=== PATIENT | male | born 1960 | race Caucasian/White ===

== ENCOUNTER 2020-02-13 12:05 | Inpatient (IN) | payer OTHER ==
[~2020-02-13] VITALS: Ht 180.3 cm; Wt 100.8 kg
--- NOTE | 2020-02-13 12:06 | NUR ---
Code cardiac called at 1149 after [facility] pre-alert. Spoke with Colten from nursery laborer at 1150 who states that the rn labor and delivery team is already in house. Per Colten he will get ahold of Dr. Newman. Dr. Newman arrived in ED before patient arrived via [facility].
[2020-02-13] MEDS ORDERED: VERAPAMIL 2.5 MG/ML, 2ML ONE (12:09)
[2020-02-13] MEDS ORDERED: FENTANYL PF 250 MCG/5ML ONE ×2 (12:09→19:14)
[2020-02-13] MEDS ORDERED: MIDAZOLAM 1 MG/ML, 5ML ONE (12:09)
[2020-02-13] MEDS ORDERED: HEPARIN 1,000 UNITS/ML, 10ML ONE (12:09)
[2020-02-13] MEDS ORDERED: LIDOCAINE-MPF 1%, 5ML ONE ×2 (12:09→12:42)
[2020-02-13] MEDS ORDERED: BIVALIRUDIN 250 MG ONE (12:09)
--- NOTE | 2020-02-13 12:10 | NUR ---
STAT ECHO called per Dr. Newman. testing and regulating technician to come down now.
[2020-02-13 12:23] LABS: MEAN CORPUSCULAR HEMOGLOBIN 32.7 pg (27.5-34.5); MEAN CORPUSCULAR HGB CONC 33.8 g/dL (33.2-36.2); MEAN CORPUSCULAR VOLUME 96.7 fL (81-97); MEAN PLATELET VOLUME 10.1 fL (7.4-10.4); PLATELET COUNT 143 x10^3/uL (130-400); RED BLOOD COUNT 5.29 x10^6/uL (4.38-5.82); RED CELL DISTRIBUTION WIDTH 15.5 % (9.4-14.8)
[2020-02-13] MEDS: PROPOFOL 100 ML IV PRN (12:28)
[2020-02-13] MEDS ORDERED: SODIUM CHLORIDE FLUSH 10ML SYR IVF ONE (12:30)
--- NOTE | 2020-02-13 12:30 | NUR ---
PT BIBA AFTER STEMI PRE-ALERT. REPORT TAKEN FROM EMS. PT UNRESPONSIVE ON ARRIVAL, SINUS TACH ON HUMAN RESOURCES RECORDS CLERK. PER EMS, PT'S FAMILY STATES PT HAS HAD GENERALIZED ABD PAIN X 5 DAYS, FAMILY DENIES ANY COUGH/FEVER/SOB. PT HAS ERYTHEMATOUS UMBILICAL HERNIA NOTED ON ARRIVAL. ON ARRIVAL, DECISION WAS MADE BY REJI LONG TO INTUBATE D/T RAPIDLY DECREASED LOC. PT MOVED FROM TRAUMA 4 TO ROOM 38 WHICH IS NEGATIVE PRESSURE. ET TUBE PLACED BY ERP WITH RN AND RT ASSIST, 24 CM AT THE KIP, 8.0 ET TUBE. RAPID COVID SWAB COLLECTED BY ERP. PT SEEN BY HUMAN RESOURCES BENEFITS ADMINISTRATOR KARENA WHO REQUESTED ECHOCARDIOGRAM BE COMPLETED AT BEDSIDE PRIOR TO TRANSPORT TO CAMP NURSE. VERBAL ORDER RECEIVED FROM MD THURSTON TO ADMINISTER 300MG RECTAL ASPIRIN. [facility], REQUESTED X 3 FROM PHARMACY. MD THURSTON NOTIFIED RN UNABLE TO GIVE RECTAL ASPIRIN. Addendum: 02/13/20 at 1443 by DEANDRA PT BIBA AFTER STEMI PRE-ALERT. REPORT TAKEN FROM EMS. PT UNRESPONSIVE ON ARRIVAL, SINUS TACH ON HUMAN RESOURCES RECORDS CLERK. PER EMS, PT'S FAMILY STATES PT HAS HAD GENERALIZED ABD PAIN X 5 DAYS, FAMILY DENIES ANY COUGH/FEVER/SOB. PT HAS ERYTHEMATOUS UMBILICAL HERNIA NOTED ON ARRIVAL. ON ARRIVAL, DECISION WAS MADE BY REJI LONG TO INTUBATE D/T RAPIDLY DECREASED LOC. PT MOVED FROM TRAUMA 4 TO ROOM 38 WHICH IS NEGATIVE PRESSURE. ET TUBE PLACED BY ERP WITH RN AND RT ASSIST, 24 CM AT THE LIP, 8.0 ET TUBE. RAPID COVID SWAB COLLECTED BY ERP. PT SEEN BY HUMAN RESOURCES BENEFITS ADMINISTRATOR DESAI WHO REQUESTED ECHOCARDIOGRAM BE COMPLETED AT BEDSIDE PRIOR TO TRANSPORT TO CAMP NURSE. VERBAL ORDER RECEIVED FROM MD THURSTON TO ADMINISTER 300MG RECTAL ASPIRIN. NO RECTAL ASPIRIN IN ED [facility], REQUESTED X 3 FROM PHARMACY. MD THURSTON NOTIFIED RN UNABLE TO GIVE RECTAL ASPIRIN.
[2020-02-13 12:33] LABS: INTERNATIONAL NORMALIZED RATIO 1.54 (0.93-1.1); PROTHROMBIN TIME 16.4 Seconds (9.6-11.5)
[2020-02-13 12:34] LABS: ALANINE AMINOTRANSFERASE 102 U/L (12-78); ANION GAP 6 mmol/L (5-15); CALCIUM 8.6 mg/dL (8.5-10.1); CHLORIDE 103 mmol/L (98-107); CREATININE 1.13 mg/dL (0.7-1.3)
[2020-02-13 12:37] LABS: BASOPHILS # (AUTO) 0.03 x10^3/uL (0-0.1); BASOPHILS % (AUTO) 0 % (0-1); EOSINOPHILS % (AUTO) 0 % (1-7); LYMPHOCYTES # (AUTO) 1.42 x10^3/uL (1-3.4); LYMPHOCYTES % (AUTO) 8 % (22-44); MD SCAN; MONOCYTES # (AUTO) 2.47 x10^3/uL (0.2-0.8); MONOCYTES % (AUTO) 14 % (2-9); NEUTROPHILS # (AUTO) 13.77 x10^3/uL (1.8-6.8); NEUTROPHILS % (AUTO) 78 % (42-75)
[2020-02-13] MEDS ORDERED: HEPARIN 5,000 UNITS/ML, 1ML ONE (12:40)
[2020-02-13 12:53] LABS: ALKALINE PHOSPHATASE 143 U/L (45-117); BILIRUBIN,TOTAL 3.1 mg/dL (0.2-1.0)
[2020-02-13] MEDS ORDERED: SODIUM CHLORIDE FLUSH 10ML SYR IVF PRN (13:00)
--- NOTE | 2020-02-13 13:00 | NUR ---
pt taken to labor arbitrator with this RN, RT and tech, report given to labor arbitrator RN Stew at bedside. labor arbitrator RN pt has not received aspirin as it was not available in rectal form in ED [facility]. droplet + isolation precautions maintained during ED stay and transport.
[2020-02-13] MEDS ORDERED: AMIODARONE 50 MG/ML, 3ML ONE (13:49)
[2020-02-13] MEDS ORDERED: DEXTROSE 5%, 250ML ONE (13:49)
[2020-02-13] MEDS ORDERED: AMIODARONE 450 MG in DEXTROSE 5% 241 ML IV SCH (14:00)
[2020-02-13] MEDS ORDERED: EPINEPHRINE SYRINGE 0.1 MG/ML, 10ML ONE (14:00)
[2020-02-13] MEDS ORDERED: PLEASE ENTER ALLERGIES MC SCH (14:00)
[2020-02-13] MEDS ORDERED: PLEASE ENTER HEIGHT AND WEIGHT MC SCH (14:00)
[2020-02-13] MEDS ORDERED: VECURONIUM 10 MG IVPush ONE (14:30)
[2020-02-13] MEDS ORDERED: ETOMIDATE 40 MG/20 ML IVPush ONE (14:30)
[2020-02-13] MEDS: MIDAZOLAM HCL 50 MG in SODIUM CHLORIDE 0.9% 40 ML IV PRN ×2 (15:07→18:52)
[2020-02-13 15:09] LABS: ALANINE AMINOTRANSFERASE 102 U/L (12-78); ANION GAP 12 mmol/L (5-15); CALCIUM 7.9 mg/dL (8.5-10.1); CHLORIDE 104 mmol/L (98-107); CREATININE 1.42 mg/dL (0.7-1.3)
[2020-02-13 15:11] LABS: ALKALINE PHOSPHATASE 154 U/L (45-117); BILIRUBIN,TOTAL 3.2 mg/dL (0.2-1.0); TOTAL PROTEIN 6.7 g/dL (6.4-8.2)
[2020-02-13 15:27] LABS: INTERNATIONAL NORMALIZED RATIO 6.54 (0.93-1.1); PROTHROMBIN TIME 70.7 Seconds (9.6-11.5)
[2020-02-13] MEDS ORDERED: SODIUM BICARBONATE 8.4% 150 MEQ in DEXTROSE 5% 1,000 ML IV SCH (15:30)
[2020-02-13] MEDS ORDERED: HEPARIN 25,000 UNITS/250ML PMX 250 ML IV PRN (15:30)
[2020-02-13] MEDS ORDERED: morphine SULFATE 10 MG/ML, 1ML IVPush PRN (15:30)
[2020-02-13] MEDS ORDERED: ONDANSETRON 2MG/ML, 2ML IVPush PRN (15:30)
[2020-02-13] MEDS ORDERED: ENOXAPARIN 40 MG/0.4 ML SQ SCH (15:30)
[2020-02-13] MEDS ORDERED: HEPARIN 5,000 UNITS/ML, 1ML IV ONE (15:30)
[2020-02-13] MEDS ORDERED: HEPARIN 5,000 UNITS/ML, 1ML IV PRN (15:30)
[2020-02-13] MEDS ORDERED: SODIUM BICARB 8.4%, 50ML SYRINGE ONE (15:35)
[2020-02-13] MEDS: METOPROLOL TARTRATE 25 MG TAB PO SCH (15:41)
[2020-02-13] MEDS: PIPERACILLIN/TAZO/PMX 3.375GM 50 ML IV SCH ×2 (15:42→22:12)
[2020-02-13] MEDS ORDERED: SODIUM BICARBONATE 1 MEQ/ML, 50ML VIAL IVPush ONE (16:00)
[2020-02-13 16:02] LABS: BILIRUBIN, DIRECT 1.4 mg/dL (0.1-0.2)
[2020-02-13 16:10] LABS: MICROSCOPIC INDICATED
[2020-02-13 16:11] LABS: BILIRUBIN,INDIRECT 1.7 mg/dL (0.0-2.0); BILIRUBIN,TOTAL 3.1 mg/dL (0.2-1.0)
[2020-02-13 16:40] LABS: D-DIMER 18.57 ug/mlFEU (0.00-0.52)
[2020-02-13] MEDS ORDERED: ACETAMINOPHEN 650 MG SUPP ONE (18:05)
[2020-02-13 18:29] LABS: INTERNATIONAL NORMALIZED RATIO 2.05 (0.93-1.1); PROTHROMBIN TIME 21.9 Seconds (9.6-11.5)
[2020-02-13] MEDS ORDERED: LACTATED RINGERS 1,000 ML IVBOLUS ONE (19:00)
[2020-02-13] MEDS ORDERED: AMIODARONE 450 MG in DEXTROSE 5% 241 ML IV PRN (19:00)
[2020-02-13] MEDS ORDERED: LIDOCAINE/PF 1.5%-EPI 1:200K, 30ML ONE (19:26)
[2020-02-13] MEDS ORDERED: FILTER 0.22 MICRON FOR AMIODARONE IV PRN (19:30)
[2020-02-13] MEDS: AMIODARONE 450 MG in DEXTROSE 5% 241 ML IV SCH (19:31)
[2020-02-13] MEDS ORDERED: SENNA/DOCUSATE TABLET NG PRN (20:00)
[2020-02-13] MEDS: ALBUTEROL/IPRATROPIUM 2.5MG/0.5MG, 3 ML INLINE SCH ×2 (20:00→22:29)
[2020-02-13] MEDS ORDERED: DEXTROSE 50%, 50ML SYRINGE IVPush PRN (20:00)
[2020-02-13] MEDS ORDERED: SENNA 176 MG/5 ML ORAL SOL NG PRN (20:00)
[2020-02-13] MEDS ORDERED: GLUCAGON 1 MG IM PRN (20:00)
[2020-02-13] MEDS ORDERED: BISACODYL 10 MG SUPP PR PRN (20:00)
[2020-02-13] MEDS ORDERED: SODIUM CHLORIDE 0.9% 1,000ML IVBOLUS ONE (20:00)
[2020-02-13] MEDS ORDERED: LACTULOSE 20 GM/30 ML UDC NG PRN (20:00)
[2020-02-13] MEDS ORDERED: ACETAMINOPHEN 650 MG SUPP PR PRN (20:00)
[2020-02-13] MEDS ORDERED: DEXTROSE 4 GM TAB.CHEW PO PRN (20:00)
[2020-02-13] MEDS ORDERED: PHARMACY MAY ADJ FOR RENAL FX MC SCH (20:00)
[2020-02-13] MEDS ORDERED: LIDOCAINE-MPF 1%, 2ML ENDO PRN (20:00)
[2020-02-13] MEDS ORDERED: ROCURONIUM 10MG/ML,5ML ONE (20:03)
[2020-02-13] MEDS ORDERED: CEFAZOLIN 1,000 MG ONE ×2 (20:09)
[2020-02-13] MEDS: HEPARIN 5,000 UNITS/ML, 1ML SQ SCH (20:48)
[2020-02-13 20:57] LABS: ANION GAP 8 mmol/L (5-15); CALCIUM 7.4 mg/dL (8.5-10.1); CHLORIDE 109 mmol/L (98-107); CREATININE 1.42 mg/dL (0.7-1.3); TRIGLYCERIDES 99 mg/dL (50-200)
[2020-02-13] MEDS ORDERED: FAMOTIDINE 20 MG/2 ML IVPush SCH (21:00)
[2020-02-13] MEDS: ATORVASTATIN 80 MG TABLET PO SCH (21:37)
[2020-02-13] MEDS: FAMOTIDINE 20 MG/2 ML IV SCH (21:37)
[2020-02-13] MEDS: SODIUM CHLORIDE FLUSH 10ML SYR IVF SCH (21:38)
[2020-02-13 21:56] LABS: MEAN CORPUSCULAR HEMOGLOBIN 32.6 pg (27.5-34.5); MEAN CORPUSCULAR HGB CONC 33.8 g/dL (33.2-36.2); MEAN CORPUSCULAR VOLUME 96.2 fL (81-97); PLATELET COUNT 140 x10^3/uL (130-400); RED BLOOD COUNT 4.49 x10^6/uL (4.38-5.82); RED CELL DISTRIBUTION WIDTH 15.5 % (9.4-14.8)
[2020-02-13 22:17] LABS: BASOPHILS # (AUTO) 0.01 x10^3/uL (0-0.1); BASOPHILS % (AUTO) 0 % (0-1); EOSINOPHILS % (AUTO) 0 % (1-7); LYMPHOCYTES # (AUTO) 1.44 x10^3/uL (1-3.4); LYMPHOCYTES % (AUTO) 6 % (22-44); MD SCAN; MONOCYTES # (AUTO) 3.37 x10^3/uL (0.2-0.8); MONOCYTES % (AUTO) 14 % (2-9); NEUTROPHILS # (AUTO) 19.08 x10^3/uL (1.8-6.8); NEUTROPHILS % (AUTO) 80 % (42-75)
[2020-02-14] MEDS: PROPOFOL 100 ML IV PRN ×3 (00:14→17:21)
[2020-02-14 00:35] LABS: AMPHETAMINE SCREEN, URINE Positive (Negative); BARBITURATE SCREEN, URINE Negative (Negative); BENZODIAZEPINE SCREEN, URINE Positive (Negative); CANNABINOID SCREEN, URINE Negative (Negative)
[2020-02-14 00:37] LABS: COCAINE SCREEN, URINE Negative (Negative); METHADONE SCREEN, URINE Negative (Negative); OPIATE SCREEN, URINE Negative (Negative)
[2020-02-14] MEDS: ALBUTEROL/IPRATROPIUM 2.5MG/0.5MG, 3 ML INLINE SCH ×6 (02:43→22:05)
[2020-02-14] MEDS: HEPARIN 5,000 UNITS/ML, 1ML SQ SCH (03:26)
[2020-02-14] MEDS: PIPERACILLIN/TAZO/PMX 3.375GM 50 ML IV SCH ×4 (03:27→21:59)
[2020-02-14 04:00] VITALS: BP 99/54
[2020-02-14 04:41] LABS: ALANINE AMINOTRANSFERASE 138 U/L (12-78); ALBUMIN 1.6 g/dL (3.4-5.0); ANION GAP 7 mmol/L (5-15); CALCIUM 7.2 mg/dL (8.5-10.1); CHLORIDE 110 mmol/L (98-107); CREATININE 1.37 mg/dL (0.7-1.3)
[2020-02-14 04:44] LABS: ALKALINE PHOSPHATASE 111 U/L (45-117); BILIRUBIN,TOTAL 2.3 mg/dL (0.2-1.0); TOTAL PROTEIN 5.2 g/dL (6.4-8.2)
[2020-02-14 04:53] LABS: MEAN CORPUSCULAR HEMOGLOBIN 32.5 pg (27.5-34.5); MEAN CORPUSCULAR HGB CONC 33.8 g/dL (33.2-36.2); MEAN CORPUSCULAR VOLUME 96.2 fL (81-97); MEAN PLATELET VOLUME 10.9 fL (7.4-10.4); PLATELET COUNT 145 x10^3/uL (130-400); RED BLOOD COUNT 4.44 x10^6/uL (4.38-5.82)
[2020-02-14] MEDS: METOPROLOL TARTRATE 25 MG TAB PO SCH (05:27)
[2020-02-14] MEDS: AMIODARONE 450 MG in DEXTROSE 5% 241 ML IV SCH ×2 (05:40→17:47)
[2020-02-14 05:54] LABS: MD YES
[2020-02-14 05:55] LABS: BAND#(MANUAL) 1.74 x10^3/uL; BANDS%(MANUAL) 12 % (0-7); LYMPH#(MANUAL) 1.02 x10^3/uL (1-3.4); LYMPHS% (MANUAL) 7 % (22-44); METAMYELOCYTES# (MANUAL) 0.15 x10^3/uL (0-0); METAMYELOCYTES% (MANUAL) 1 % (0-1); MONOS#(MANUAL) 1.45 x10^3/uL (0.3-2.7); MONOS% (MANUAL) 10 % (2-9); SEG#(MANUAL) 10.15 x10^3/uL (1.8-6.8); SEGS% (MANUAL) 70 % (42-75)
[2020-02-14 05:58] LABS: <PLATELET ESTIMATE> ADEQUATE; <PLT MORPHOLOGY> NORMAL PLT MORPH; <RBC MORPHOLOGY> NORMAL
[2020-02-14] MEDS ORDERED: LISINOPRIL 10 MG TABLET PO SCH (09:00)
[2020-02-14] MEDS: ASPIRIN 81 MG TABLET EC PO SCH (09:07)
[2020-02-14] MEDS: FAMOTIDINE 20 MG/2 ML IV SCH ×2 (09:18→21:58)
[2020-02-14] MEDS: ALBUMIN HUMAN 25% 200 ML IV SCH ×2 (09:18→17:30)
[2020-02-14] MEDS: SODIUM CHLORIDE FLUSH 10ML SYR IVF SCH ×2 (09:20→21:59)
[2020-02-14] MEDS: BUDESONIDE 0.5 MG/2 ML INHA INH SCH ×2 (10:20→18:27)
[2020-02-14] MEDS: CARVEDILOL 3.125 MG TABLET PO SCH ×2 (11:10→16:53)
[2020-02-14] MEDS: FENTANYL PF 100 MCG/2ML IVPush PRN ×2 (12:57→14:45)
[2020-02-14] MEDS: MIDAZOLAM HCL 50 MG in SODIUM CHLORIDE 0.9% 40 ML IV PRN ×2 (14:30→23:19)
[2020-02-14] MEDS: FENTANYL PF 1,000 MCG in SODIUM CHLORIDE 0.9% 80 ML IV PRN ×2 (15:28→23:04)
[2020-02-14] MEDS: NOREPINEPHRINE 8 MG in SODIUM CHLORIDE 0.9% 242 ML IV PRN ×3 (17:21→22:04)
[2020-02-14] MEDS: ATORVASTATIN 80 MG TABLET PO SCH (20:54)
[2020-02-14] MEDS ORDERED: SODIUM CHLORIDE 0.9% 1,000ML IVBOLUS ONE (21:00)
[2020-02-14] MEDS: VASOPRESSIN 20 UNIT in SODIUM CHLORIDE 0.9% 99 ML IV PRN (22:03)
[2020-02-15] MEDS: ALBUMIN HUMAN 25% 200 ML IV SCH (00:55)
[2020-02-15] MEDS: NOREPINEPHRINE 8 MG in SODIUM CHLORIDE 0.9% 242 ML IV PRN ×3 (01:12→05:56)
[2020-02-15] MEDS: ALBUTEROL/IPRATROPIUM 2.5MG/0.5MG, 3 ML INLINE SCH ×2 (02:21→07:00)
[2020-02-15] MEDS: PIPERACILLIN/TAZO/PMX 3.375GM 50 ML IV SCH (03:12)
[2020-02-15] MEDS: PROPOFOL 100 ML IV PRN (03:12)
[2020-02-15 04:00] VITALS: BP 106/44
[2020-02-15] MEDS: VASOPRESSIN 20 UNIT in SODIUM CHLORIDE 0.9% 99 ML IV PRN (04:51)
[2020-02-15] MEDS: CARVEDILOL 3.125 MG TABLET PO SCH (04:51)
[2020-02-15 04:55] LABS: MEAN CORPUSCULAR HEMOGLOBIN 33.1 pg (27.5-34.5); MEAN CORPUSCULAR HGB CONC 33.5 g/dL (33.2-36.2); MEAN CORPUSCULAR VOLUME 98.8 fL (81-97); MEAN PLATELET VOLUME 9.9 fL (7.4-10.4); PLATELET COUNT 132 x10^3/uL (130-400); RED BLOOD COUNT 3.55 x10^6/uL (4.38-5.82); RED CELL DISTRIBUTION WIDTH 16.1 % (9.4-14.8)
[2020-02-15 05:50] LABS: MD YES
[2020-02-15 05:51] LABS: BAND#(MANUAL) 1.85 x10^3/uL; BANDS%(MANUAL) 12 % (0-7); LYMPH#(MANUAL) 1.39 x10^3/uL (1-3.4); LYMPHS% (MANUAL) 9 % (22-44); MONOS#(MANUAL) 1.85 x10^3/uL (0.3-2.7); MONOS% (MANUAL) 12 % (2-9); SEG#(MANUAL) 10.32 x10^3/uL (1.8-6.8); SEGS% (MANUAL) 67 % (42-75)
[2020-02-15 05:55] LABS: <PLATELET ESTIMATE> ADEQUATE; <PLT MORPHOLOGY> NORMAL PLT MORPH; <RBC MORPHOLOGY> NORMAL
[2020-02-15] MEDS: BUDESONIDE 0.5 MG/2 ML INHA INH SCH (07:01)
[2020-02-15] MEDS: SODIUM CHLORIDE FLUSH 10ML SYR IVF SCH (07:26)
[2020-02-15] MEDS: FAMOTIDINE 20 MG/2 ML IV SCH (07:26)
[2020-02-15] MEDS: ASPIRIN 81 MG TABLET EC PO SCH (07:26)
[2020-02-15] MEDS ORDERED: LORazepam 2 MG/ML, 1ML IVPush PRN (07:30)
[2020-02-15] MEDS ORDERED: MORPHINE SULFATE 4 MG/ML, 1ML IV ONE (07:30)
[2020-02-15] MEDS ORDERED: morphine SULFATE 10 MG/ML, 1ML IVPush PRN (07:30)
[2020-02-15] MEDS ORDERED: ONDANSETRON 2MG/ML, 2ML IVPush PRN (07:30)
[2020-02-15] MEDS ORDERED: SCOPOLAMINE 1MG PATCH TD PRN (07:30)
[2020-02-15] MEDS ORDERED: LORazepam 2 MG/ML, 1ML IV ONE (07:30)
== END 2020-02-15 08:05 | disposition expired | DRG 853 ==
LOC: EDBD → MERGE 12:05 → ED 12:45 → EDIP 12:46 → ED 12:57 → CCU 14:07
PROVIDERS: ADMIT Internal Medicine; ATTEND Hospitalist
PROC: 0WQF0ZZ Repair Abdominal Wall, Open Approach (ICD-10-PCS; 2020-02-13)
PROC: 0WBF0ZZ Excision of Abdominal Wall, Open Approach (ICD-10-PCS; 2020-02-13)
PROC: 0D180Z8 Bypass Small Intestine to Small Intestine, Open Approach (ICD-10-PCS; 2020-02-13)
PROC: B2111ZZ Fluoroscopy of Multiple Coronary Arteries using Low Osmolar Contrast (ICD-10-PCS; 2020-02-13)
PROC: 5A1935Z Respiratory Ventilation, Less than 24 Consecutive Hours (ICD-10-PCS; 2020-02-13)
PROC: 0BH17EZ Insertion of Endotracheal Airway into Trachea, Via Natural or Artificial Opening (ICD-10-PCS; 2020-02-13)
PROC: 4A023N7 Measurement of Cardiac Sampling and Pressure, Left Heart, Percutaneous Approach (ICD-10-PCS; principal; 2020-02-13 19:00)
DX: A41.9 Sepsis, unspecified organism (principal); J96.01 Acute respiratory failure with hypoxia; J18.9 Pneumonia, unspecified organism; E43 Unspecified severe protein-calorie malnutrition; G93.41 Metabolic encephalopathy; I21.19 ST elevation (STEMI) myocardial infarction involving other coronary artery of inferior wall; I47.2 Ventricular tachycardia; K56.609 Unspecified intestinal obstruction, unspecified as to partial versus complete obstruction; B17.9 Acute viral hepatitis, unspecified; R18.8 Other ascites; E87.2 Acidosis; Z99.11 Dependence on respirator [ventilator] status; K42.0 Umbilical hernia with obstruction, without gangrene; E80.6 Other disorders of bilirubin metabolism; I25.5 Ischemic cardiomyopathy; I95.89 Other hypotension; D72.829 Elevated white blood cell count, unspecified; E78.5 Hyperlipidemia, unspecified; R73.9 Hyperglycemia, unspecified; F15.90 Other stimulant use, unspecified, uncomplicated; I49.01 Ventricular fibrillation; Z87.891 Personal history of nicotine dependence; I25.10 Atherosclerotic heart disease of native coronary artery without angina pectoris
CPT/HCPCS: 31500; 36415; 36600; 74018; 84145; 87806; 96374; 99291; J3490; J7626; 71045; 74176; 80048; 80053; 80074; 80307; 81001; 82247; 82248; 82533; 82803; 83605; 83690; 83735; 84100; 84443; 84478; 84484; 85025; 85379; 85384; 85520; 85610; 85730; 86704; 86705; 86706; 86707; 86803; 87040; 87070; 87077; 87081; 87086; 87186; 87205; 87340; 87350; 87521; 87635; 88307; 93005; 93306; 93308; 94002; 94003; 94640; G0378; J0583; J0690; J1644; J2250; J2543; J2704; J3010; J7060; P9047; G0475; J0282; J2060; J2270; J7030; J7050; J7120